=== PATIENT | female | born 1970 | race Two or more races ===

== ENCOUNTER 2019-12-18 14:02 | Inpatient (IN) | payer BC, OTHER ==
[~2019-12-18] VITALS: Ht 152.4 cm; Wt 98.0 kg
[2019-12-18] MEDS ORDERED: SODIUM CHLORIDE 0.9% 1,000 ML IVB ONE (14:56)
[2019-12-18] MEDS ORDERED: KETOROLAC TROMETH 15 mg/ml 1ML VL IV ONE (15:00)
[2019-12-18] MEDS ORDERED: ONDANSETRON HCL 4 MG/2 ML VIAL IV ONE ×2 (15:00→18:30)
[2019-12-18 15:35] LABS: Basophils # (auto) 0 10 ^3/uL (0-0.2); Eosinophils # (auto) 0 10 ^3/uL (0-0.8); Eosinophils % (auto) 0.5 % (0.0-7.0); Hemoglobin 11.5 g/dL (12.2-16.2); Mean Corpuscular Hemoglobin 25.8 pg (28.0-32.0); Monocytes # (auto) 0.5 10 ^3/uL (0-1.3); Nucleated Red Blood Cells % 0.1 %; White Blood Cell 5.6 10^3/uL (4.4-10.8)
[2019-12-18 15:37] LABS: Basophils % (auto) 0.3 % (0.0-2.0); Hematocrit 34.4 % (36.0-46.0); Mean Corpuscular Hgb Conc. 33.5 g/dL (32.0-36.0); Mean Corpuscular Volume 77.3 fL (80.0-100.0); Monocytes % (auto) 8.9 % (0.0-12.0); Neutrophils # (auto) 4.1 10 ^3/uL (1.6-8.6); Neutrophils % (auto) 72.3 % (37.0-80.0); Platelet Count (auto) 223 10^3/uL (140-450); Red Blood Cells 4.45 10^6/uL (4.0-5.20)
[2019-12-18 15:48] LABS: Albumin 3.6 g/dL (3.4-5.0); Calcium 8.8 mg/dL (8.5-10.1); Potassium 3.4 mmol/L (3.5-5.1)
[2019-12-18 15:51] LABS: Bilirubin, Total 0.5 mg/dL (0.2-1.0); Total Protein 7.8 g/dL (6.4-8.2)
[2019-12-18] MEDS: HYDROmorphone HCL 2 MG/ML VL IV ONE ×2 (16:45→17:11)
[2019-12-18] MEDS: ONDANSETRON HCL 4 MG/2 ML VIAL IV ONE ×2 (16:45→17:12)
[2019-12-18 18:29] LABS: Urine Amorphous Crystal FEW /hpf (None Seen); Urine Bacteria NONE SEEN /hpf (None Seen); Urine Blood Negative /uL (Negative); Urine Mucus FEW (None Seen); Urine Specific Gravity 1.032 (1.001-1.035); Urine WBC 4 /hpf (0 - 5)
[2019-12-18] MEDS ORDERED: HYDROmorphone HCL 2 MG/ML VL IV ONE (18:30)
[2019-12-18] MEDS ORDERED: ONDANSETRON HCL 4 MG/2 ML VIAL IV PRN (19:15)
[2019-12-18] MEDS ORDERED: FAMOTIDINE (10MG/ML) 2ML VL IV ONE (19:15)
[2019-12-18] MEDS ORDERED: HYDROmorphone HCL 2 MG/ML VL IV PRN (19:15)
[2019-12-18] MEDS: SODIUM CHLORIDE 0.9% 1,000 ML IV SCH (21:27)
[2019-12-18 22:00] VITALS: BP 109/58
--- NOTE | 2019-12-18 23:00 | NUR ---
MS admit from ER [facility] admitted to tele/MS. Patient oriented to MURPHY MONTE, primary RN, unit, room, bed, and unit policies regarding patient care and visiting hours. Patient weighed by bed scale and encouraged to call if they need something. All questions and concerns addressed, patient verbalized understanding. Patient A&OX4, ambulatory, skin intact.
[2019-12-19 05:00] VITALS: BP 114/60
[2019-12-19] MEDS: SODIUM CHLORIDE 0.9% 1,000 ML IV SCH (05:31)
--- NOTE | 2019-12-19 08:00 | NUR ---
RECEIVED PATIENT ALERT AND ORIENTED X4, NOT IN DISTRESS, CLEAR LUNG SOUNDS RR=18 DEEP BREATHING AND COUGHING WAS ENCOURAGED, DEMONSTRATED WELL, HEART R=78, ABDOMEN SOFT WITH ACTIVE BS, LAST BM=12/19/19 REPORTED, SKIN INTACT WARM TO TOUCH, RADIAL AND PEDAL PULSES PALPABLE, CAP REFILL <3 SECONDS, RESTING ON BED, HEAD OF BED ELEVATED, BED ON LOW POSITION, RAILS UP X2, CALL LIGHT ON REACH, WILL CONTINUE MONITORING.
[2019-12-19 09:00] VITALS: BP 124/75
--- NOTE | 2019-12-19 11:35 | NUR ---
UROLOGY AND DR. OTTO WAS CALLED FOR PENDING UROLOGY CONSULT AND FOLLOW UP, WAITING FOR CALL BACK, PATIENT SITTING ON BED AND DANGLING, COMFORTABLE, DENIED PAIN, WILL CONTINUE MONITORING.
[2019-12-19 13:00] VITALS: BP 124/74
--- NOTE | 2019-12-19 15:05 | NUR ---
UROLOGY CONSULT WAS DONE, CLEARED TO D/C REPORTED, DR. OTTO WAS NOTIFIED AND AWARE, WILL CONTINUE MONITORING.
[2019-12-19 16:22] VITALS: BP 124/75
[2019-12-19 17:00] VITALS: BP 129/80
--- NOTE | 2019-12-19 17:09 | NUR ---
D/C EDUCATION WAS PROVIDED, PENDING D/C PROCESS, PATIENT WALK OUT AND WENT HOME WITH OUT TAKING D/C PAPERS AND FOLLOW UP INFORMATIONS, SECURITY NOTIFIED, PATIENT WAS CALLED ON [phone] AND APPROACHED, PATIENT WILL COME BACK FOR D/C IV SITE AND TO LOSS CONTROL CONSULTANT D/C INFORMATIONS REPORTED, WAITING PATIENT TO COME BACK.
[2019-12-19] MEDS ORDERED: TAMSULOSIN HYDROCHLORIDE 0.4 MG CAP PO SCH (18:00)
--- NOTE | 2019-12-19 18:00 | NUR ---
CALL BACK [phone] TO FOLLOW UP IF THE PATIENT COMING BACK NO RESPONDING, NEXT KIN DAUGHTER ERIN WAS CALLED X2 ON [phone], UNABLE TO REACH MOTHER, ASHLY WAS CALLED [phone] AND REPORTED TO JOURDAN.
== END 2019-12-19 19:00 | disposition home or self-care (01) | DRG 694 ==
LOC: ER 14:05 → OVERFLOW 14:06 → WEST WING 20:20
PROVIDERS: ADMIT Nurse Practitioner Acute Care; ATTEND Internal Medicine
DX: N13.2 Hydronephrosis with renal and ureteral calculous obstruction (principal); Z68.41 Body mass index [BMI] 40.0-44.9, adult; E66.01 Morbid (severe) obesity due to excess calories; K40.90 Unilateral inguinal hernia, without obstruction or gangrene, not specified as recurrent; D50.9 Iron deficiency anemia, unspecified; Z90.49 Acquired absence of other specified parts of digestive tract; Z98.51 Tubal ligation status; Z83.3 Family history of diabetes mellitus
CPT/HCPCS: 36415; 74176; 80053; 81001; 85025; 96361; 96374; 96375; 96376; G0378; J2405; J3490